=== PATIENT | male | born 1990 | race Two or more races ===

== ENCOUNTER 2019-06-06 03:29 | Inpatient (IN) | payer OTHER ==
[~2019-06-06] VITALS: Ht 177.8 cm; Wt 111.3 kg
[2019-06-06 05:01] VITALS: BP 125/70
[2019-06-06] MEDS ORDERED: ZOLPIDEM TARTRATE 5 MG TABLET PO PRN (06:00)
[2019-06-06] MEDS ORDERED: 0.9% SODIUM CHLORIDE 10 ML SYRINGE IVP PRN (06:00)
[2019-06-06] MEDS ORDERED: ACETAMINOPHEN 650 MG/20.3 ML SOLUTION UDCUP PO PRN (06:00)
[2019-06-06] MEDS ORDERED: ONDANSETRON HCL 4 MG/2 ML VIAL IVP PRN (06:00)
[2019-06-06 07:26] VITALS: BP 118/68
[2019-06-06] MEDS: PANTOPRAZOLE SODIUM 40 MG DR TABLET PO SCH (09:13)
[2019-06-06] MEDS: DOCUSATE SODIUM 100 MG CAPSULE PO SCH ×2 (09:13→19:50)
[2019-06-06 11:01] VITALS: BP 130/66
[2019-06-06 15:01] VITALS: BP 126/68
[2019-06-06 19:14] VITALS: BP 128/88
[2019-06-06] MEDS: ACETAMINOPHEN 325 MG TABLET PO PRN (19:50)
[2019-06-06 23:39] VITALS: BP 134/77
[2019-06-07] MEDS ORDERED: ARIP5TAB8 PO (00:54)
[2019-06-07] MEDS ORDERED: LAMO25 PO (00:54)
[2019-06-07 04:36] VITALS: BP 127/77
[2019-06-07 08:05] VITALS: BP 132/71
[2019-06-07] MEDS: DOCUSATE SODIUM 100 MG CAPSULE PO SCH ×3 (08:24→21:00)
[2019-06-07] MEDS: PANTOPRAZOLE SODIUM 40 MG DR TABLET PO SCH (08:24)
[2019-06-07 11:31] VITALS: BP 117/62
[2019-06-07 16:33] VITALS: BP 137/92
[2019-06-07] MEDS: ACETAMINOPHEN 325 MG TABLET PO PRN (19:43)
[2019-06-07 20:30] VITALS: BP 131/79
[2019-06-07] MEDS ORDERED: ARIPiprazole 5 MG TABLET PO SCH (21:00)
[2019-06-08] VITALS (7 sets, daily range): BP systolic 116–146; BP diastolic 58–84
[2019-06-08] MEDS: DOCUSATE SODIUM 100 MG CAPSULE PO SCH ×2 (08:16→19:54)
[2019-06-08] MEDS: PANTOPRAZOLE SODIUM 40 MG DR TABLET PO SCH (08:16)
[2019-06-08] MEDS: ACETAMINOPHEN 325 MG TABLET PO PRN (08:18)
[2019-06-08] MEDS ORDERED: ARIPiprazole 10 MG TABLET PO SCH (21:00)
[2019-06-09 04:00] VITALS: BP 136/77
[2019-06-09] MEDS: ACETAMINOPHEN 325 MG TABLET PO PRN (06:43)
[2019-06-09 07:43] VITALS: BP 143/84
[2019-06-09] MEDS: PANTOPRAZOLE SODIUM 40 MG DR TABLET PO SCH (09:00)
[2019-06-09] MEDS: DOCUSATE SODIUM 100 MG CAPSULE PO SCH (09:00)
[2019-06-09 11:36] VITALS: BP 150/87
[2019-06-09] MEDS ORDERED: ARIP10TA8 PO ×2 (13:37→13:38)
[2019-06-09 15:27] VITALS: BP 143/91
== END 2019-06-09 17:06 | DRG 885 ==
LOC: 6S 03:40
PROVIDERS: ADMIT Internal Medicine; ATTEND Internal Medicine
DX: F25.1 Schizoaffective disorder, depressive type (principal); T14.91XA Suicide attempt, initial encounter; F41.9 Anxiety disorder, unspecified